=== PATIENT | female | born 1935 | race Caucasian/White ===

== ENCOUNTER 2019-12-15 08:56 | Day surgery (SDC) | payer OTHER ==
[2019-12-14 13:45] LABS: COVID AG,FIA SOURCE NASOPHARYNGEAL
[~2019-12-15] VITALS: Ht 152.4 cm; Wt 48.0 kg
[2019-12-15] MEDS ORDERED: SODIUM CHLORIDE 0.9% 1,000 ML IV ONE (09:00)
[2019-12-15] MEDS ORDERED: PANT-31 PO (09:31)
[2019-12-15] MEDS ORDERED: TRAM50TA4 PO (09:31)
[2019-12-15] MEDS ORDERED: HYDR-1475 PO (09:31)
[2019-12-15] MEDS ORDERED: FLUT16H NASAL (09:31)
[2019-12-15] MEDS ORDERED: METO25XL PO (09:31)
[2019-12-15] MEDS ORDERED: ACET325S20 PR (09:31)
[2019-12-15] MEDS ORDERED: ATOR20TA86 PO (09:31)
[2019-12-15] MEDS ORDERED: TOPI25 PO (09:31)
[2019-12-15] MEDS ORDERED: LOSA50TA37 PO (09:31)
[2019-12-15] MEDS ORDERED: ISOS5TAB5 PO (09:31)
[2019-12-15] MEDS ORDERED: OXYGEN THERAPY IH SCH (11:45)
[2019-12-15] MEDS ORDERED: PROPOFOL 1% 20 ML VIAL IVP ONE (12:00)
== END 2019-12-15 12:50 | disposition home or self-care (01) ==
LOC: SURGERY 08:56
PROVIDERS: ATTEND Specialist
DX: K22.2 Esophageal obstruction (principal); K29.50 Unspecified chronic gastritis without bleeding; K25.9 Gastric ulcer, unspecified as acute or chronic, without hemorrhage or perforation; I10 Essential (primary) hypertension; E78.5 Hyperlipidemia, unspecified; K21.9 Gastro-esophageal reflux disease without esophagitis; E78.00 Pure hypercholesterolemia, unspecified; Z20.828 Contact with and (suspected) exposure to other viral communicable diseases; Z90.710 Acquired absence of both cervix and uterus
CPT/HCPCS: 43239; 87426; 88305; 88312; 88313; 93005; C1769; C9803; J2704

== ENCOUNTER 2020-03-01 08:56 | Day surgery (SDC) | payer OTHER ==
[2020-02-29 12:29] LABS: COVID AG,FIA SOURCE NASOPHARYNGEAL
[~2020-03-01] VITALS: Ht 152.4 cm; Wt 46.4 kg
[~2020-03-01 08:56] MED LIST: ACET325S20 PR; ATOR20TA86 PO; FLUT16H NASAL; HYDR-1475 PO; ISOS5TAB5 PO; LOSA50TA37 PO; METO25XL PO; PANT-31 PO; SODIUM CHLORIDE 0.9% 1,000 ML ONE; TOPI25 PO; TRAM50TA4 PO
[2020-03-01] MEDS ORDERED: LIDOCAINE/PF 2% 5 ML VIAL IM ONE (08:57)
[2020-03-01] MEDS ORDERED: PROPOFOL 1% 20 ML VIAL IVP ONE (08:57)
[2020-03-01] MEDS ORDERED: SODIUM CHLORIDE 0.9% 1,000 ML IV ONE (09:00)
[2020-03-01] MEDS ORDERED: MIDAZOLAM HCL 5 MG/ML VIAL ONE (10:22)
[2020-03-01] MEDS ORDERED: FentaNYL CITRATE PF 100 MCG/2 ML VIAL ONE (10:22)
[2020-03-01] MEDS ORDERED: OXYGEN THERAPY IH SCH (20:00)
== END 2020-03-01 12:00 | disposition home or self-care (01) ==
LOC: SDS 08:56
PROVIDERS: ATTEND Specialist
DX: K31.89 Other diseases of stomach and duodenum (principal); K31.7 Polyp of stomach and duodenum; I10 Essential (primary) hypertension; Z20.822 Contact with and (suspected) exposure to COVID-19; Z86.010 Personal history of colon polyps; Z87.19 Personal history of other diseases of the digestive system; M81.0 Age-related osteoporosis without current pathological fracture; K21.9 Gastro-esophageal reflux disease without esophagitis; Z79.899 Other long term (current) drug therapy; Z95.0 Presence of cardiac pacemaker
CPT/HCPCS: 43245; 87426; 93005; C9803; J2704; J3490; J7030; J2250; J3010

== ENCOUNTER 2021-05-30 08:12 | Day surgery (SDC) | payer OTHER ==
[2021-05-28 15:12] LABS: COVID AG,FIA SOURCE NASOPHARYNGEAL
[~2021-05-30] VITALS: Ht 157.5 cm; Wt 47.7 kg
[~2021-05-30 08:12] MED LIST changes: +AMLO-257 PO; +CHOL25TA4 PO; +DENO60DI SQ; +DICL2.5D8 OU; +FERR325T27 PO; -HYDR-1475 PO; +HYDR-4396 PO; +HYDR200T38 PO; +HYDR25TA2 PO; +LOSA-382 PO; -LOSA50TA37 PO; +NIFE-40 PO; +SODIUM CHLORIDE 0.9% 1,000 ML IV ONE; +SPIR-37 PO; +SUCR1TAB28 PO
[2021-05-30] MEDS ORDERED: PROPOFOL 1% 20 ML VIAL IVP ONE (12:00)
[2021-05-30] MEDS ORDERED: LIDOCAINE/PF 2% 5 ML VIAL IM ONE (12:00)
[2021-05-30] MEDS ORDERED: OXYGEN THERAPY IH SCH (20:00)
== END 2021-05-30 12:15 | disposition home or self-care (01) ==
LOC: SURGERY 08:12
PROVIDERS: ATTEND Specialist
DX: K57.30 Diverticulosis of large intestine without perforation or abscess without bleeding (principal); K20.90 Esophagitis, unspecified without bleeding; I10 Essential (primary) hypertension; K25.9 Gastric ulcer, unspecified as acute or chronic, without hemorrhage or perforation; Z90.710 Acquired absence of both cervix and uterus; Z87.11 Personal history of peptic ulcer disease; Z86.010 Personal history of colon polyps; D64.9 Anemia, unspecified; Z95.0 Presence of cardiac pacemaker
CPT/HCPCS: 43239; 45378; 87426; 88305; C1769; C9803; J2704; J3490; J7030